=== PATIENT | male | born 1990 | race Caucasian/White ===

== ENCOUNTER 2016-07-07 12:31 | Emergency (ER) | payer SELFPAY ==
[2016-07-07] MEDS ORDERED: Ketorolac 30 MG/ML SDV IVPUSH ONE (12:55)
[2016-07-07] MEDS ORDERED: Sodium Chloride 0.9% 10 ML Syringe FLUSH PRN (12:55)
[2016-07-07] MEDS ORDERED: Sodium Chloride 0.9% 2.5 ML Syringe FLUSH PRN (12:55)
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
[2016-07-07 14:07] LABS: CHLORIDE,CL 103 mmol/L (98-110); SODIUM,NA 137 mmol/L (136-146)
[2016-07-07] MEDS ORDERED: cefTRIAXone 1 GM in Premix Bag 1 BAG IV ONE (14:18)
[2016-07-07 15:18] VITALS: BP 115/58
--- NOTE | 2016-07-09 16:38 | CR ---
EXAM DATE: 07/07/16 PATIENT'S AGE: 25 Patient: CHENG ROGERS Facility: [place], [place] Site . Site : 1990 Study: XRay Extremity Left great toe [id number] 1:16:09 PM Ordering Physician: Doctor Mayo Final Report: INDICATION: Pain, swelling and redness. Technique: Three views of the left 1st and 2nd toes. Findings: Deformity of the distal aspect of the 1st and 2nd proximal phalanges is chronic and the bones of each of these toes distal to these segments are absent likely related to prior amputation. Moderate soft tissue swelling involving the distal remaining aspect of the 1st and 2nd toes nonspecific. Mild degenerative arthritis left foot. No definite erosive change involving the visualized bones of the left foot to suggest osteomyelitis. Remainder negative. Dictated by Medhat Ramirez MD @ Jul 07 2016 1:35PM (Electronic Signature) Report Signed by Proxy. MARIO
== END 2016-07-07 15:19 | disposition home or self-care (01) ==
LOC: MW.ED 12:31
DX: L03.032 Cellulitis of left toe (principal); Z98.890 Other specified postprocedural states
CPT/HCPCS: 36415; 73660; 80053; 83605; 85025; 87040; 96365; 96375; 99284; J0696; J1885